=== PATIENT | male | born 1980 | race Caucasian/White ===

== ENCOUNTER 2025-06-01 10:47 | Emergency (ER) | payer MEDICAID ==
[~2025-06-01] VITALS: Ht 180.3 cm; Wt 100.0 kg
[2025-06-01 11:06] VITALS: O2SAT 99
[2025-06-01 11:46] VITALS: BP 179/123; PULSE 92; TEMP 36.9; O2SAT 99
[2025-06-01 12:08] LABS: BASOPHILS % 1.3 % (0.0-2.0); EOSINOPHILS % 2.6 % (0.0-5.0); HEMATOCRIT. 40.8 % (42.0-52.0); HEMOGLOBIN. 13.9 g/dL (14.0-18.0); LYMPHOCYTES % 23.7 % (20.0-50.0); MEAN PLATELET VOLUME 7.0 fl (7.4-10.4); MONOCYTES % 7.7 % (2.0-8.0); NEUTROPHILS % 64.7 % (40.0-76.0); PLATELET 326 x1000/uL (130-400); RED BLOOD CELL COUNT 4.48 mill/uL (4.7-6.1); RED CELL DISTRIBUTION WIDTH 13.3 % (11.6-14.6)
[2025-06-01 12:23] LABS: CREATININE 0.9 mg/dL (0.6-1.3)
[2025-06-01 12:24] LABS: UREA NITROGEN BLOOD 9 mg/dL (9-23)
[2025-06-01 12:31] VITALS: RESP 16
[2025-06-01] MEDS: LACTULOSE 20G/30ML UDC PO ONE (12:31)
[2025-06-01] MEDS: IBUPROFEN 600MG TABLET PO ONE (12:31)
[2025-06-01] MEDS: ACETAMINOPHEN 325MG TABLET PO ONE (12:31)
== END 2025-06-01 14:20 | disposition left against medical advice (07) ==
LOC: ER 10:47 → EDBEDREQTM 14:11 → EDBEDREQ 14:11 → ER 14:20 → ENRESERV 14:49 → CANRESERV 14:49 → CANBEDREQ 14:59
DX: M25.511 Pain in right shoulder (principal); R10.9 Unspecified abdominal pain; M54.50 Low back pain, unspecified; K59.00 Constipation, unspecified; F17.200 Nicotine dependence, unspecified, uncomplicated; F15.90 Other stimulant use, unspecified, uncomplicated
CPT/HCPCS: 36415; 73030; 74018; 80048; 85025; 99284